=== PATIENT | female | born 1980 | race Caucasian/White ===

== ENCOUNTER 2019-04-28 05:22 | Day surgery (SDC) | payer BC ==
[2019-04-25 14:25] LABS: BASOPHILS % (AUTO) 0.5 % (0-1); EOSINOPHILS % (AUTO) 0.4 % (0-6); LYMPHOCYTES # (AUTO) 1.8 X10'3 (1.1-4.8); LYMPHOCYTES % (AUTO) 29.4 % (21-51); MEAN CORPUSCULAR HEMOGLOBIN 32.1 PG (27.0-31.0); MEAN CORPUSCULAR HGB CONC 34.2 g/dL (33.0-36.5); MEAN CORPUSCULAR VOLUME 93.7 FL (78-98); MEAN PLATELET VOLUME 8.1 FL (7.4-10.4); MONOCYTES # (AUTO) 0.3 X10'3 (0-0.9); MONOCYTES % (AUTO) 4.8 % (2-12); NEUTROPHILS # (AUTO) 3.9 X10'3 (1.8-7.7); NEUTROPHILS % (AUTO) 64.9 % (42-75); PRE OP HEMATOCRIT 38.9 % (35.0-45.0); PRE OP HEMOGLOBIN 13.3 g/dL (12.0-16.0); PRE OP PLATELET COUNT 252 X10'3 (140-440); RED BLOOD COUNT 4.15 X10'6 (4.20-5.60); RED CELL DISTRIBUTION WIDTH 12.5 % (11.5-14.5)
[2019-04-25 14:37] LABS: ALBUMIN 3.8 G/DL (3.4-5.0); ALBUMIN/GLOBULIN RATIO 1.2 (1.1-1.5); ALKALINE PHOSPHATASE 51 IU/L (46-116); BLOOD UREA NITROGEN 11 MG/DL (7-18); BUN/CREATININE RATIO 16.9 (6.6-38.0); CALCIUM 8.6 MG/DL (8.5-10.1); CHLORIDE 105 MMOL/L (99-107); CREATININE 0.65 MG/DL (0.40-0.90); PRE OP ALT 15 U/L (30-65); PRE OP ANION GAP 8 (8-16); PRE OP AST 14 U/L (10-37); PRE OP BILIRUB, TOTAL 0.5 MG/DL (0.0-1.0); PRE OP GLUCOSE 107 MG/DL (70-104); PRE OP POTASSIUM 3.6 MMOL/L (3.4-5.1); PRE OP SODIUM 141 MMOL/L (135-145); TOTAL CARBON DIOXIDE 28.2 MMOL/L (24-32); TOTAL PROTEIN 7.1 G/DL (6.4-8.2); eGFR > 90 ML/MIN
[2019-04-25 14:41] LABS: HCG SERUM QL NEGATIVE
[2019-04-25 14:43] LABS: CLARITY,URINE SLIGHTLY CLOUDY (Clear); COLOR,URINE YELLOW (Yellow); GLUCOSE, URINE NEGATIVE (Neg); KETONES,URINE NEGATIVE (Neg); LEUKOCYTE ESTERASE ,URINE NEGATIVE (Neg); NITRITES, URINE NEGATIVE (Neg); OCCULT BLOOD,URINE NEGATIVE (Neg); PH,URINE 5.5 (4.8-8.0); PROTEIN,URINE NEGATIVE (Neg); UROBILINOGEN,URINE 0.2 E.U/dL (0.2-1.0)
[2019-04-25 14:46] LABS: UA COLLECTION TYPE CLN CATCH MIDSTREAM
[2019-04-25 14:57] LABS: MUCUS STRANDS MANY /LPF (Neg); SQUAMOUS EPITHELIAL CELL,UR MANY /LPF (FEW)
[2019-04-25 14:58] LABS: BACTERIA,URINE FEW /HPF (Neg); RBC,URINE 0-2 /HPF (0-2); WBC,URINE 0-4 /HPF (0-4)
[~2019-04-28] VITALS: Ht 172.7 cm; Wt 66.0 kg
[~2019-04-28 05:22] MED LIST: MULT-933 PO; ringers solution, lacted 1,000 ML IV SCH
[2019-04-28 05:30] VITALS: BP 111/60
[2019-04-28] MEDS ORDERED: famotidine 20mg tablet PO ONE (05:30)
[2019-04-28] MEDS ORDERED: ceFOXitin 2 GM ADDvantage bag 100 ML IV ONE (05:30)
[2019-04-28] MEDS ORDERED: LIDOcaine 1% (10mg/ml) 2ml vial ONE (05:38)
[2019-04-28] MEDS ORDERED: ceFOXitin sod/dextrose 2g/50ml 50 ML IV ONE (06:15)
[2019-04-28] MEDS ORDERED: BUPIVAcaine/PF 2.5 mg/ml (0.25%) 30ml vial ONE ×2 (06:47→06:49)
[2019-04-28] MEDS ORDERED: LIDOcaine 1% 30ml preserv. free vial ONE (06:47)
[2019-04-28] MEDS ORDERED: epiNEPHrine 1 mg/ml inj ONE (06:49)
[2019-04-28] MEDS ORDERED: atropine 1 MG/1 ML vial ONE (07:22)
[2019-04-28] MEDS ORDERED: sevoflurane 250ml liquid IH ONE (07:22)
[2019-04-28] MEDS ORDERED: fentaNYL/PF 50MCG/1 ML 2ML syringe ONE (07:31)
[2019-04-28] MEDS ORDERED: midazolam 2 mg/2 ml injection ONE (07:32)
[2019-04-28] MEDS ORDERED: LIDOcaine 2% (20mg/ml) 5ml vial ONE (07:34)
[2019-04-28] MEDS ORDERED: propofol inj 20 ML IV ONE (07:34)
[2019-04-28] MEDS ORDERED: rocuronium 10mg/ml inj IV ONE (07:41)
[2019-04-28] MEDS ORDERED: ketorolac trometh. 30mg/ml inj. ONE (07:42)
[2019-04-28] MEDS ORDERED: ondansetron/PF 4mg/2ml inj ONE (07:42)
[2019-04-28] MEDS ORDERED: dexamethasone sod phosphate 4mg/ml inj. ONE (07:42)
[2019-04-28] MEDS ORDERED: ringers solution, lacted 1,000 ML IV SCH (07:54)
[2019-04-28] MEDS ORDERED: proCHLORperazine 10 MG/2 ml inj IV PRN (07:55)
[2019-04-28] MEDS ORDERED: meperidine/PF 25mg/ml syringe IV PRN ×3 (07:55)
[2019-04-28] MEDS ORDERED: ondansetron/PF 4mg/2ml inj IV PRN (07:55)
[2019-04-28] MEDS ORDERED: morphine 4 MG/ML inj SYRINge IV PRN ×2 (07:55)
[2019-04-28] MEDS ORDERED: glycopyrrolate 0.2mg/ml inj ONE (08:18)
[2019-04-28] MEDS ORDERED: neostigmine methylsulfate 1 MG/ML 10ml vial ONE (08:18)
[2019-04-28 08:30] VITALS: BP 123/67
--- NOTE | 2019-04-28 08:30 | NUR ---
Received from OR via BED , accompanied by Anesthesiologist DR keith and report given by Anesthesiolgist. PATIENT WAKING UP, DENIES, V/S WNL, NEUROVASCULAR CHECKS INTACT, 20G PIV rUE, SCD ON, LAP SIGHTS OF ABDOMEN AND WITH PERIPAD WITH SCANT DRAINAGE CDI.
[2019-04-28 08:40] VITALS: BP 128/72
[2019-04-28 08:50] VITALS: BP 106/62
[2019-04-28 09:00] VITALS: BP 113/65
[2019-04-28 09:10] VITALS: BP 109/66
--- NOTE | 2019-04-28 09:10 | NUR ---
PATIENT A&OX4, DENIES PAIN, V/S WNL, NEUROVASCULAR CHECKS INTACT, 20G PIV RUE D/C WITH NO COMPLICATIONS OBSERVED, SCD OFF, SIGHTS OF ABDOMEN CDI. FRESH MIKE PAD GIVEN TO PATIENT. I HAVE REVIEWED D/C INSTRUCTIONS WITH PATIENT AND FAMILY AND THEY HAVE VERBALIZED UNDERSTANDING. PATIENT D/C HOME WITH FAMILY TO TRANSPORT AND ALL BELONGINGS..
== END 2019-04-28 09:10 | disposition home or self-care (01) ==
LOC: PAS 05:22
PROVIDERS: ATTEND Obstetrics & Gynecology Obstetrics
DX: Z30.2 Encounter for sterilization (principal); N83.8 Other noninflammatory disorders of ovary, fallopian tube and broad ligament; Z79.899 Other long term (current) drug therapy; Z82.49 Family history of ischemic heart disease and other diseases of the circulatory system; Z82.61 Family history of arthritis; Z82.5 Family history of asthma and other chronic lower respiratory diseases
CPT/HCPCS: 36415; 58670; 80053; 81001; 82948; 84703; 85025; 86885; 86900; 86901; J0171; J0461; J0694; J1100; J1885; J2001; J2250; J2405; J2704; J2710; J3010; J3490; J7120; A4618; A7000